=== PATIENT | female | born 1945 | race Asian ===

== ENCOUNTER 2017-11-03 08:30 | Day surgery (SDC) | payer OTHER | END 2017-11-03 10:40 | disposition home or self-care (01) | LOC: OR 08:30 | PROC: 08RK3JZ Replacement of Left Lens with Synthetic Substitute, Percutaneous Approach (ICD-10-PCS; principal; 2017-11-03) | DX: H25.812 Combined forms of age-related cataract, left eye (principal) | CPT/HCPCS: 66984; J2250; J3490; V2632 ==